=== PATIENT | female | born 2000 | race American Indian/Alaskan Native ===

== ENCOUNTER 2021-01-28 03:37 | Outpatient (CLI) | payer OTHER ==
[2021-01-28] MEDS ORDERED: LACTATED RINGERS 1,000 ML IV ONE (03:53)
[2021-01-28 04:09] VITALS: BP 117/68
[2021-01-28 04:36] LABS: Bilirubin,Urine NEG (Negative); Blood,Urine NEG (Negative); Color,Urine Straw (Yellow); Hyaline Casts,Urine 1 /LPF; Mucus,Urine FEW /HPF; Protein,Urine <15 mg/dL mg/dL (Negative); Urobilinogen,Urine < 2.0 mg/dL (<2.0)
== END 2021-01-28 05:55 | disposition home or self-care (01) ==
LOC: TRG 03:37 → APU 03:46 → TRG 05:55
PROVIDERS: ATTEND Obstetrics & Gynecology
DX: O26.893 Other specified pregnancy related conditions, third trimester (principal); R10.30 Lower abdominal pain, unspecified; Z3A.36 36 weeks gestation of pregnancy
CPT/HCPCS: 59025; 81001

== ENCOUNTER 2021-02-10 10:40 | Outpatient (CLI) | payer OTHER ==
[2021-02-10 11:09] VITALS: BP 132/74
--- NOTE | 2021-02-10 12:40 | Ultrasound Report ---
ULTRASOUND BIOPHYSICAL PROFILE ULTRASOUND OB LIMITED INDICATION: FRANCISCA, decreased movement TECHNIQUE: Transabdominal ultrasound imaging. COMPARISON: None FINDINGS: breathing movement = 2 Gross body movement = 2 tone = 2 Qualitative amniotic fluid volume = 2 Total biophysical score = 8/8 Amniotic fluid index is 24.1 cm. Presentation is cephalic. heart rate is 152 beats per minute. IMPRESSION: biophysical profile equals 8/8. Signer Name: Cristóbal Mei Jr, MD Signed: 02/10/2021 12:35 PM Workstation Name: [id number]
[2021-02-10 12:59] LABS: Bilirubin,Urine NEG (Negative); Blood,Urine NEG (Negative); Color,Urine Yellow (Yellow); Mucus,Urine FEW /HPF; Protein,Urine <15 mg/dL mg/dL (Negative); Urobilinogen,Urine < 2.0 mg/dL (<2.0)
== END 2021-02-10 14:12 | disposition home or self-care (01) ==
LOC: APU 10:40 → TRG 10:40
PROVIDERS: ATTEND Obstetrics & Gynecology
DX: Z34.93 Encounter for supervision of normal pregnancy, unspecified, third trimester (principal); Z3A.38 38 weeks gestation of pregnancy
CPT/HCPCS: 59025; 76815; 76819; 81001; Q0177